=== PATIENT | male | born 1960 ===

== ENCOUNTER 2020-10-25 09:02 | Emergency (ER) | payer OTHER, SELFPAY ==
[2020-10-25] MEDS ORDERED: Iopamidol 370 76% 100 ML VIAL IV ONE (09:03)
[2020-10-25 09:44] LABS: #Basophils 0.2 thou/uL (0.0-0.2); #Eosinphils 0.2 thou/uL (0.0-0.7); #Lymphocytes 3.4 thou/uL (1.20-3.40); #Monocytes 0.6 thou/uL (0.11-0.59); #Neutrophils 6.8 thou/uL (1.40-6.50); %Basophils 1.6 % (0.0-1.0); %Lymphocytes 30.5 % (21.0-51.0); %Monocytes 5.5 % (0.0-10.0); %Neutrophils 60.5 % (42.0-75.0); Mean Corpuscular HGB CONC 32.1 g/dL (32.0-36.0); Mean Corpuscular Volume 102.8 fL (78.0-98.0); Mean Platelet Volume 12.1 fL (7.4-10.4); Platelet Count 210 thou/uL (130-400); Platelet Morphology Comment Appears Adequate; RBC Distribution Width 13.2 % (11.5-14.5); RBC Morphology Normal; Red Blood Cell (RBC) Count 4.54 mill/uL (4.70-6.10); White Blood Cell (WBC) Count 11.3 thou/uL (4.8-10.8)
[2020-10-25 09:50] LABS: ALT (SGPT) 45 U/L (8-55); AST (SGOT) 39 U/L (5-34); Albumin 4.1 g/dL (3.5-5.0); Alkaline Phosphatase 73 U/L (40-110); Anion Gap 17 mmol/L (10-20); BUN (Urea Nitrogen) 11 mg/dL (8.4-25.7); Bilirubin, Total 0.3 mg/dL (0.2-1.2); Calc. Creatinine Clearance 0 mL/min (70-130); Carbon Dioxide 21 mmol/L (22-29); Chloride 106 mmol/L (98-107); Globulin 3.5 g/dL (2.4-3.5); Glucose 108 mg/dL (70-105); Potassium 3.9 mmol/L (3.5-5.1); Protein, Total 7.6 g/dL (6.0-8.3); Sodium 140 mmol/L (136-145)
[2020-10-25] MEDS ORDERED: Ketorolac Tromethamine 30 MG/ML VIAL ONE (11:09)
[2020-10-25] MEDS ORDERED: Cyclobenzaprine 10 MG TAB ONE (11:09)
== END 2020-10-25 11:48 | disposition home or self-care (01) ==
LOC: MADERS 09:02
DX: S40.012A Contusion of left shoulder, initial encounter (principal); S00.83XA Contusion of other part of head, initial encounter; R07.89 Other chest pain; W55.22XA Struck by cow, initial encounter; Y92.39 Other specified sports and athletic area as the place of occurrence of the external cause
CPT/HCPCS: 70450; 71260; 72125; 74177; 80053; 85025; 96374; J1885; Q9967

== ENCOUNTER 2021-09-09 09:45 | Emergency (ER) | payer SELFPAY ==
[2021-09-09] MEDS ORDERED: Aspirin Chewable 81 MG TAB ONE (10:47)
[2021-09-09 11:02] LABS: ALT (SGPT) 49 U/L (8-55); AST (SGOT) 35 U/L (5-34); Albumin 4.2 g/dL (3.5-5.0); Alkaline Phosphatase 72 U/L (40-110); Anion Gap 14 mmol/L (10-20); BUN (Urea Nitrogen) 15 mg/dL (8.4-25.7); Bilirubin, Total 0.5 mg/dL (0.2-1.2); Calc. Creatinine Clearance 0 mL/min (70-130); Calcium 9.5 mg/dL (7.8-10.44); Carbon Dioxide 26 mmol/L (22-29); Chloride 105 mmol/L (98-107); Estimated GFR 92; Globulin 2.8 g/dL (2.4-3.5); Glucose 85 mg/dL (70-105); Lipase 16 U/L (8-78); Potassium 4.6 mmol/L (3.5-5.1); Sodium 140 mmol/L (136-145)
[2021-09-09 14:01] LABS: Troponin I Less than 0.010 ng/mL (< 0.028)
== END 2021-09-09 14:30 | disposition home or self-care (01) ==
LOC: MADERS 09:45
DX: S29.011A Strain of muscle and tendon of front wall of thorax, initial encounter (principal); F17.210 Nicotine dependence, cigarettes, uncomplicated; X50.9XXA Other and unspecified overexertion or strenuous movements or postures, initial encounter
CPT/HCPCS: 71045; 80053; 83690; 84484; 93005

== ENCOUNTER 2022-01-06 20:00 | Emergency (ER) | payer SELFPAY ==
[2022-01-06 21:07] LABS: #Basophils 0.1 thou/uL (0.0-0.2); #Eosinphils 0.2 thou/uL (0.0-0.7); #Lymphocytes 1.9 thou/uL (1.20-3.40); #Monocytes 0.6 thou/uL (0.11-0.59); %Eosinophils 1.4 % (0.0-10.0); %Lymphocytes 14.5 % (21.0-51.0); %Monocytes 4.6 % (0.0-10.0); %Neutrophils 78.6 % (42.0-75.0); Hemoglobin 10.1 g/dL (14.0-18.0); Mean Corpuscular HGB CONC 31.8 g/dL (32.0-36.0); Mean Corpuscular Volume 88.1 fl (78.0-98.0); Mean Platelet Volume 9.5 fL (7.4-10.4); Platelet Count 380 thou/uL (130-400); RBC Distribution Width 16.4 % (11.5-14.5); Red Blood Cell (RBC) Count 3.61 mill/uL (4.70-6.10); White Blood Cell (WBC) Count 12.8 thou/uL (4.8-10.8)
[2022-01-06] MEDS ORDERED: Ondansetron PF 4 MG/2 ML Vial ONE (21:22)
[2022-01-06] MEDS ORDERED: Ketorolac Tromethamine 30 MG/ML VIAL ONE (21:22)
[2022-01-06] MEDS ORDERED: Sodium Chloride 0.9% 1,000 ML ONE (21:22)
[2022-01-06 21:25] LABS: ALT (SGPT) 10 U/L (8-55); AST (SGOT) 12 U/L (5-34); Albumin 3.6 g/dL (3.5-5.0); Alkaline Phosphatase 105 U/L (40-110); Anion Gap 17 mmol/L (10-20); BUN (Urea Nitrogen) 17 mg/dL (8.4-25.7); Bilirubin, Total 0.3 mg/dL (0.2-1.2); Calc. Creatinine Clearance 0 mL/min (70-130); Calcium 9.3 mg/dL (7.8-10.44); Carbon Dioxide 23 mmol/L (22-29); Chloride 101 mmol/L (98-107); Estimated GFR 108; Globulin 3.8 g/dL (2.4-3.5); Glucose 105 mg/dL (70-105); Potassium 4.3 mmol/L (3.5-5.1); Protein, Total 7.4 g/dL (6.0-8.3); Sodium 137 mmol/L (136-145)
[2022-01-06 22:38] LABS: Bilirubin Negative (Negative); Blood, Urine Negative (Negative); Clarity Clear (Clear); Glucose, Urine (Dipstick) Negative (Negative); Ketone, Urine Negative (Negative); Leukocyte Negative (Negative); Nitrite Negative (Negative); Protein, Urine (Dipstick) Negative (Neg-Trace); Urobilinogen 0.2 mg/dL (Less than 2); pH, Urine 8.5 (5.0-9.0)
== END 2022-01-07 00:14 | disposition home or self-care (01) ==
LOC: MADERS 20:00
DX: R50.9 Fever, unspecified (principal); M79.10 Myalgia, unspecified site; E78.5 Hyperlipidemia, unspecified; F17.210 Nicotine dependence, cigarettes, uncomplicated; Z79.899 Other long term (current) drug therapy
CPT/HCPCS: 71045; 71260; 80053; 81003; 83605; 85025; 86140; 87040; 87804; 96374; 96375; J1885; J2405; J7050

== ENCOUNTER 2022-01-24 10:02 | Outpatient (CLI) | payer OTHER | END 2022-01-24 10:03 | disposition home or self-care (01) | LOC: MADLAB 10:02 | PROVIDERS: ATTEND Family Medicine | DX: J18.9 Pneumonia, unspecified organism (principal) | CPT/HCPCS: 71046 ==